=== PATIENT | male | born 1970 | race Caucasian/White ===

== ENCOUNTER 2022-07-14 08:30 | Outpatient (CLI) | payer OTHER, SELFPAY ==
[2022-07-14 12:38] LABS: Albumin* 4.4 g/dL (3.3-5.0); Chloride* 106 mmol/L (96-114)
[2022-07-14 12:39] LABS: Potassium* 4.5 mmol/L (3.6-5.1); Sodium* 139 mmol/L (135-149)
[2022-07-14 12:41] LABS: Alkaline Phosphatase* 74 U/L (40-150); Aspartate Amino Transferase* 28 U/L (12-35); Bilirubin Total* 0.7 mg/dL (0.1-1.5); Blood Urea Nitrogen* 13 mg/dL (7-30); Carbon Dioxide* 27 mmol/L (20-32); Cholesterol* 224 mg/dL (90-199); Estimated Glomerular Filt Rate 90 ml/min; Glucose* 97 mg/dL (60-115); Total Protein* 7.3 g/dL (6.0-8.3); Triglycerides* 74 mg/dL (40-149)
[2022-07-14 12:42] LABS: Alanine Aminotransferase* 26 U/L (4-50); Calcium* 9.5 mg/dL (8.4-10.6); HDL Cholesterol* 60 mg/dL (>=40); LDL Cholesterol Calculated 149 mg/dL (<100)
[2022-07-14 13:12] LABS: PSA Screen* 0.84 ng/mL (0.10-4.00)
== END 2022-07-14 08:31 | disposition home or self-care (01) ==
PROVIDERS: PCP Internal Medicine; Visit Provider Internal Medicine
DX: Z00.00 Encounter for general adult medical examination without abnormal findings (principal); Z13.6 Encounter for screening for cardiovascular disorders; Z12.5 Encounter for screening for malignant neoplasm of prostate
CPT/HCPCS: 80053; 80061; 84153

== ENCOUNTER 2023-09-12 08:36 | Outpatient (CLI) | payer OTHER, SELFPAY ==
--- OUTSIDE RECORDS SUMMARY | 2023-09-12 08:38 | XMS_ITS | Clinical Summary ---
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 3-4 times per week per pt 0 09/02/2009 Active loratadine-pseudoephe drine, 10-240 mg, 24 hr (CLARITIN-D 24 HOUR) 10-240 mg per tablet Take 1 tablet by mouth once daily. 0 08/02/2010 Active fluticasone, 50 mcg per actuation, nasal (FLONASE) sprayIndications:Vinay rgic rhinitis due to other allergen Inhale 2 Sprays into both nostrils once daily. . 1 Bottle 11 07/04/2012 Active Active Problems Problem Noted Date Diagnosed Date Allergic rhinitis, cause unspecified 12/13/2006 Overweight(278.02) 12/13/2006 Immunizations Name Administration Dates Next Due AMB Influenza, IIV4 PF (=>6 mos Flulaval,Fluzone Fluarix)(Flu Clinic Only) 06/19/2014 Influenza A (H1N1), Inactiva phuong (Age >=3 Years) 09/02/2009 Influenza, IIV3 (Age >=3 years) 07/04/20 12,07/29/2011,06/17/2010,2008 Td (Age >=7 Years) 08/14/2001 Tdap 07/29/2011 Family History Medical History Relation Name Comments Diabetes Maternal Grandfather Cancer-breast Mother Cancer-colon Neg. 1 Cancer-prostate Neg. 2 Heart Disease Neg. 3 Relation Name Status Comments Father Alive Maternal Grandfather Mother Alive Neg. 1 Neg. 2 Neg. 3 Social History Tobacco Use Types Packs/Day Years Used Date Smoking Tobacco: Never Smokeless Tobacco: Never Tobacco Cessation:Counseling Given: Yes Alcohol Use Standard Drinks/Week Comments Yes 1.7 (1 standard drink = 0.6 oz p ure alcohol) occ Sex and Gender Information Value Date Recorded Sex Assigned at Not on file Gender Identity Not on file Sexual Orientation Not on file Obstetrics History Last Filed Vital Signs Vital Sign Reading Time Taken Comments Blood Pressure 132/81 07/27/2012 3:28 PM BODY TRIMMER Pulse 68 07/27/2012 3:28 PM [employer] TRIMMER Temperature 36.7 ??C (98 ??F) 07/04/2012 1:53 PM B[employer] TRIMMER Respiratory Rate - - Oxygen Saturation 98% 07/04/2012 1:53 PM B[employer] TRIMMER Inhaled Oxygen Concentration - - Weight 87.1 kg (192 lb) 07/27/2012 3:28 PM BODY TRIMMER Height 178.1 cm (5' 10.13) 07/04/2012 1:[address] Body Mass Index 27.45 07/04/2012 1:53 PM BODY TRIMMER Plan of Treatment Health Maintenance Due Date Last Done Comments COVID-19 vaccine series (#1) 05/22/1969 Depression screening for age 12+ 1980 HIV for age 15-65 11/21/1983 BMI (ht and wt on same day) for age 18+ 1986 Hepatitis C screening for age 18-79 1986 Colonoscopy through age 75 2013 Lipids for age 45-75 08/05/2016 08/05/2011, 09/04/2009, 12/15/2006 Zoster (shingles) series for age 50+ (1 of 2) 2018 Tetanus booster 07/29/2021 07/29/2011, 08/14/2001 Influenza for age 50-64 04/14/2023 06/19/20 14, 07/04/2012, 07/29/2011, Additional history exists Tdap Completed 07/29/2011 Pneumococcal series for age 6-64 Aged Out No longer eligible based on patient's age to complete this topic Care Teams Sports Book Writer Relationship Specialty Start Date End Date Phong Vasquez MD [address] [place] [id number] PCP - General 12/13/06
== END 2023-09-12 08:37 | disposition home or self-care (01) ==
PROVIDERS: PCP Internal Medicine; Visit Provider Internal Medicine
DX: Z13.220 Encounter for screening for lipoid disorders (principal); Z13.228 Encounter for screening for other metabolic disorders; Z12.5 Encounter for screening for malignant neoplasm of prostate
CPT/HCPCS: 80053; 80061; G0103

== ENCOUNTER 2024-10-01 07:56 | Outpatient (CLI) | payer OTHER, SELFPAY | END 2024-10-01 07:57 | disposition home or self-care (01) | LOC: NFLDREF 10-05 01:48 | PROVIDERS: PCP Internal Medicine; Referring Provider Internal Medicine; Visit Provider Internal Medicine | DX: E78.5 Hyperlipidemia, unspecified (principal); Z13.9 Encounter for screening, unspecified | CPT/HCPCS: 80053; 80061 ==